=== PATIENT | female | born 1970 | race Caucasian/White ===

== ENCOUNTER 2021-02-21 10:46 | Day surgery (SDC) | payer OTHER, SELFPAY ==
[~2021-02-21] VITALS: Ht 154.9 cm; Wt 62.6 kg
[~2021-02-21 10:46] MED LIST: CEFAZOLIN SOD 2 GM in D5W 50 ML IV ONE
[2021-02-21] MEDS ORDERED: ONDANSETRON HCL 4 MG/2 ML VIAL IVP PRN (14:00)
[2021-02-21] MEDS ORDERED: HYDROmorphone 1 MG/ML INJ. CARTRIDGE IVP PRN ×2 (14:00)
[2021-02-21] MEDS ORDERED: HYDROmorphone 2 MG/ML VIAL IVP PRN (14:00)
[2021-02-21] MEDS ORDERED: LR 1,000 ML IV.SOLN IV ONE (15:00)
[2021-02-21] MEDS ORDERED: NS IRRIG SOLN 1000 ML IR ONE (15:00)
[2021-02-21] MEDS ORDERED: BUPIVACAINE /EPINEPHRINE/PF 0.5% 30 ML VIAL INJ ONE (15:00)
[2021-02-21] MEDS ORDERED: DESFLURANE 15 MIN GAS INH ONE (15:00)
[2021-02-21] MEDS ORDERED: WATER FOR IRRIGATION,STERILE 1,000 ML IRRIG.SOLN IR ONE (15:00)
[2021-02-21] MEDS ORDERED: NS 1000 ML IV.SOLN IV ONE (15:00)
[2021-02-21] MEDS ORDERED: ROCURONIUM BROMIDE 10 MG/ML (ZEMURON) ONE (15:00)
[2021-02-21] MEDS ORDERED: PROPOFOL 200MG/ 20ML VIAL (DIPRIVAN) IV ONE (15:00)
[2021-02-21] MEDS ORDERED: SUGAMMADEX SODIUM 200 MG/2 ML VIAL IV ONE (15:00)
[2021-02-21] MEDS ORDERED: ONDANSETRON HCL 4 MG/2 ML VIAL ONE ×2 (15:00→15:11)
[2021-02-21] MEDS ORDERED: SUCCINYLCHOLINE CHLORIDE 20 MG/ML(QUELICIN) ONE (15:00)
[2021-02-21] MEDS ORDERED: METOCLOPRAMIDE HCL 10 MG/2 ML VIAL ONE (15:00)
[2021-02-21] MEDS ORDERED: KETOROLAC TROMETHAMINE 30 MG VIAL ONE (15:00)
[2021-02-21] MEDS ORDERED: DEXAMETHASONE SOD PHOSPHATE 4 MG/ML VIAL ONE (15:00)
[2021-02-21] MEDS ORDERED: ACETAMINOPHEN I.V. 1000 MG 100 ML IV ONE (15:10)
[2021-02-21] MEDS ORDERED: traMADol HCL HCL 50 MG TABLET (ULTRAM) ONE (16:43)
[2021-02-21] MEDS ORDERED: traMADol HCL HCL 50 MG TABLET (ULTRAM) PO ONE (16:45)
[2021-02-21 17:00] VITALS: BP_SYST 121
== END 2021-02-21 18:45 | disposition home or self-care (01) ==
LOC: SDS 10:46 → SMU 10:54 → SDS 18:45
PROVIDERS: ATTEND Surgery
DX: K80.10 Calculus of gallbladder with chronic cholecystitis without obstruction (principal); R10.11 Right upper quadrant pain; Z90.410 Acquired total absence of pancreas; J45.909 Unspecified asthma, uncomplicated; Z79.899 Other long term (current) drug therapy
CPT/HCPCS: 47562; 88304; C1727; C9399; J0131; J0330; J0690; J1100; J1885; J2405; J2704; J2765; J3490; J7030; J7060; J7120